=== PATIENT | male | born 1975 | race Caucasian/White ===

== ENCOUNTER 2019-11-25 06:53 | Emergency (ER) | payer MEDICARE, MEDICAID ==
[~2019-11-25] VITALS: Ht 182.9 cm; Wt 96.3 kg
[2019-11-25 06:56] VITALS: BP 121/82
--- NOTE | 2019-11-25 07:10 | NUR ---
PRESENTS WITH INCREASE IN RIGHT SHOULDER PAIN D/T INCREASED ACTIVITY. REPORTS HE WAS DX WITH RIGHT TORN ROTATOR CUFF, AND RUPTURED BICEP 2 MONTHS AGO. SURGERY RESCHEDULED D/T SOCIAL ISSUES. HAS BEEN TAKING MOTRIN "AROUND THE CLOCK" CMS INTACT. NO GROSS DEFORMITY TO SHOULDER NOTED
[2019-11-25] MEDS ORDERED: KETOROLAC 30 MG/1 ML IM ONE (07:30)
[2019-11-25] MEDS ORDERED: ACETAMINOPHEN 500 MG TABLET PO ONE (07:30)
[2019-11-25] MEDS ORDERED: ACETAMINOPHEN 500 MG TABLET ONE (07:40)
--- NOTE | 2019-11-25 07:44 | NUR ---
MEDICATED PER EMAR FOR RIGHT SHOULDER PAIN AT 7
== END 2019-11-25 08:08 | disposition home or self-care (01) ==
LOC: ED 08:00
DX: M25.511 Pain in right shoulder (principal); F32.9 Major depressive disorder, single episode, unspecified; R00.0 Tachycardia, unspecified
CPT/HCPCS: 99283

== ENCOUNTER 2020-10-21 03:08 | Inpatient (IN) | payer MEDICARE, MEDICAID ==
[~2020-10-21] VITALS: Ht 182.9 cm; Wt 120.0 kg
[2020-10-21 04:33] VITALS: BP 98/65
[2020-10-21] MEDS ORDERED: BUPR-173 PO (04:36)
[2020-10-21] MEDS ORDERED: RISP1TAB45 PO (04:36)
[2020-10-21] MEDS ORDERED: lisinopril PO (04:36)
[2020-10-21] MEDS ORDERED: ONDANSETRON 2MG/ML, 2ML IVPush PRN ×2 (06:00→16:00)
[2020-10-21] MEDS ORDERED: MELATONIN 5 MG TABLET PO PRN (06:00)
[2020-10-21] MEDS ORDERED: BISACODYL 10 MG SUPP PR PRN (06:00)
[2020-10-21] MEDS ORDERED: LABETALOL 5MG/ML, 20ML IVPush PRN (06:00)
[2020-10-21] MEDS: LACTATED RINGERS 1,000 ML IV SCH ×2 (06:18→23:56)
[2020-10-21] MEDS: PIPERACILLIN/TAZO 4.5 GM in DEXTROSE 5% 100 ML IV SCH ×4 (06:36→23:58)
[2020-10-21 07:30] VITALS: BP 105/64
[2020-10-21 08:16] LABS: BASOPHILS % (AUTO) 0 % (0-1); EOSINOPHILS % (AUTO) 2 % (1-7); LYMPHOCYTES % (AUTO) 20 % (22-44); MEAN CORPUSCULAR HGB CONC 34.4 g/dL (33.2-36.2); MEAN PLATELET VOLUME 8.2 fL (7.4-10.4); MONOCYTES % (AUTO) 10 % (2-9); NEUTROPHILS % (AUTO) 68 % (42-75); PLATELET COUNT 214 x10^3/uL (130-400); RED BLOOD COUNT 5.61 x10^6/uL (4.38-5.82); RED CELL DISTRIBUTION WIDTH 13.9 % (9.4-14.8)
[2020-10-21 08:24] LABS: ANION GAP 6 mmol/L (5-15); CALCIUM 8.9 mg/dL (8.5-10.1); CHLORIDE 109 mmol/L (98-107)
[2020-10-21] MEDS: FAMOTIDINE 20 MG/2 ML IVPush SCH ×2 (08:54→21:39)
[2020-10-21] MEDS: morphine SULFATE 10 MG/ML, 1ML IVPush PRN ×2 (08:56→21:37)
[2020-10-21] MEDS: NICOTINE 21 MG/24 HR PATCH.TD24 TD SCH (10:33)
[2020-10-21 14:57] VITALS: BP 103/77
[2020-10-21] MEDS ORDERED: CHLORHEXIDINE 15 ML UDC ONE (15:00)
[2020-10-21] MEDS ORDERED: CHLORHEXIDINE 15 ML UDC PO ONE (15:00)
[2020-10-21] MEDS ORDERED: FENTANYL PF 250 MCG/5ML ONE (15:30)
[2020-10-21] MEDS ORDERED: MIDAZOLAM 1 MG/ML, 2ML ONE (15:30)
[2020-10-21] MEDS ORDERED: OXYcodone 5 MG/5 ML ORAL.SOL UDC PO PRN (16:00)
[2020-10-21] MEDS ORDERED: MEPERIDINE/PF 25MG/0.5ML IVPush PRN (16:00)
[2020-10-21] MEDS ORDERED: morphine SULFATE 10 MG/ML, 1ML IVPush PRN (16:00)
[2020-10-21] MEDS ORDERED: hydrALAzine 20 MG/ML, 1ML IV PRN (16:00)
[2020-10-21] MEDS ORDERED: LABETALOL 5MG/ML, 20ML IV PRN (16:00)
[2020-10-21] MEDS ORDERED: CEFAZOLIN 1,000 MG ONE (16:25)
[2020-10-21] MEDS ORDERED: CEFOTETAN 2 GM ONE (16:25)
[2020-10-21] MEDS ORDERED: SUCCINYLCHOLINE 20 MG/ML, 10ML ONE (16:26)
[2020-10-21] MEDS ORDERED: NEOSTIGMINE 1 MG/ML, 10ML ONE (16:26)
[2020-10-21] MEDS ORDERED: PROPOFOL 10 MG/ML, 20ML ONE (16:26)
[2020-10-21] MEDS ORDERED: ROCURONIUM 10MG/ML,5ML ONE (16:26)
[2020-10-21] MEDS ORDERED: GLYCOPYRROLATE 0.2MG/1ML, 5ML ONE (16:26)
[2020-10-21] MEDS ORDERED: SUGAMMADEX 200 MG/2 ML IVPush ONE (16:35)
[2020-10-21] MEDS ORDERED: HYDROmorphone 2 MG/ML, 1ML ONE (16:35)
[2020-10-21] MEDS: HYDROmorphone 1 MG/ML, 1ML INJ IVPush PRN ×3 (16:50→17:37)
[2020-10-21] MEDS ORDERED: FENTANYL PF 100 MCG/2ML ONE (16:56)
[2020-10-21] MEDS: FENTANYL PF 100 MCG/2ML IV PRN ×2 (17:01→17:09)
[2020-10-21] MEDS ORDERED: CYCL10TA2 PO (19:44)
[2020-10-21] MEDS ORDERED: NAPR-996 PO (19:44)
[2020-10-21 19:54] VITALS: BP 110/75
[2020-10-21] MEDS: FLUCONAZOLE 400 MG/200 ML 200 ML IV SCH (21:30)
[2020-10-22 01:22] VITALS: BP 117/78
[2020-10-22 03:56] VITALS: BP 124/80
[2020-10-22] MEDS: morphine SULFATE 10 MG/ML, 1ML IVPush PRN ×4 (04:44→21:15)
[2020-10-22 08:00] VITALS: BP 114/76
[2020-10-22] MEDS: PIPERACILLIN/TAZO 4.5 GM in DEXTROSE 5% 100 ML IV SCH ×2 (08:17→16:19)
[2020-10-22] MEDS: FAMOTIDINE 20 MG/2 ML IVPush SCH ×2 (08:17→21:03)
[2020-10-22] MEDS: NICOTINE 21 MG/24 HR PATCH.TD24 TD SCH (08:20)
[2020-10-22 09:11] LABS: BASOPHILS % (AUTO) 1 % (0-1); EOSINOPHILS % (AUTO) 1 % (1-7); LYMPHOCYTES % (AUTO) 13 % (22-44); MEAN CORPUSCULAR HGB CONC 34.5 g/dL (33.2-36.2); MEAN PLATELET VOLUME 8.1 fL (7.4-10.4); MONOCYTES % (AUTO) 9 % (2-9); NEUTROPHILS % (AUTO) 76 % (42-75); PLATELET COUNT 192 x10^3/uL (130-400); RED CELL DISTRIBUTION WIDTH 13.8 % (9.4-14.8)
[2020-10-22 09:22] LABS: ANION GAP 9 mmol/L (5-15); CALCIUM 8.4 mg/dL (8.5-10.1); CHLORIDE 106 mmol/L (98-107)
[2020-10-22 09:55] LABS: CREATININE 0.93 mg/dL (0.7-1.3)
[2020-10-22] MEDS: LACTATED RINGERS 1,000 ML IV SCH ×2 (10:24→23:23)
[2020-10-22 14:12] VITALS: BP 116/76
[2020-10-22 19:16] VITALS: BP 120/89
[2020-10-22] MEDS: FLUCONAZOLE 400 MG/200 ML 200 ML IV SCH (21:02)
[2020-10-23] MEDS: morphine SULFATE 10 MG/ML, 1ML IVPush PRN ×5 (01:40→20:28)
[2020-10-23] MEDS: PIPERACILLIN/TAZO 4.5 GM in DEXTROSE 5% 100 ML IV SCH ×3 (01:49→18:15)
[2020-10-23 01:57] VITALS: BP 126/81
[2020-10-23 05:56] LABS: ANION GAP 9 mmol/L (5-15); CALCIUM 8.6 mg/dL (8.5-10.1); CHLORIDE 105 mmol/L (98-107)
[2020-10-23 05:57] LABS: ALANINE AMINOTRANSFERASE 18 U/L (12-78); ALBUMIN 2.5 g/dL (3.4-5.0)
[2020-10-23 05:59] LABS: ALKALINE PHOSPHATASE 73 U/L (45-117); BILIRUBIN,TOTAL 1.1 mg/dL (0.2-1.0); TOTAL PROTEIN 7.2 g/dL (6.4-8.2)
[2020-10-23 06:08] LABS: BASOPHILS % (AUTO) 0 % (0-1); EOSINOPHILS % (AUTO) 3 % (1-7); LYMPHOCYTES % (AUTO) 19 % (22-44); MEAN CORPUSCULAR HEMOGLOBIN 31.6 pg (27.5-34.5); MEAN CORPUSCULAR HGB CONC 35.3 g/dL (33.2-36.2); MEAN PLATELET VOLUME 8.6 fL (7.4-10.4); MONOCYTES % (AUTO) 11 % (2-9); NEUTROPHILS % (AUTO) 67 % (42-75); PLATELET COUNT 201 x10^3/uL (130-400); RED BLOOD COUNT 5.23 x10^6/uL (4.38-5.82); RED CELL DISTRIBUTION WIDTH 13.6 % (9.4-14.8)
[2020-10-23 08:06] VITALS: BP 125/81
[2020-10-23] MEDS: FAMOTIDINE 20 MG/2 ML IVPush SCH ×2 (08:57→20:28)
[2020-10-23] MEDS: NICOTINE 21 MG/24 HR PATCH.TD24 TD SCH (08:58)
[2020-10-23] MEDS: LACTATED RINGERS 1,000 ML IV SCH (12:51)
[2020-10-23 15:10] VITALS: BP 111/75
[2020-10-23 20:15] VITALS: BP 123/70
[2020-10-23 20:19] VITALS: BP 133/82
[2020-10-23] MEDS: FLUCONAZOLE 400 MG/200 ML 200 ML IV SCH (20:28)
[2020-10-24] MEDS: LACTATED RINGERS 1,000 ML IV SCH ×3 (01:01→23:28)
[2020-10-24 01:43] VITALS: BP 138/85
[2020-10-24] MEDS: PIPERACILLIN/TAZO 4.5 GM in DEXTROSE 5% 100 ML IV SCH ×3 (02:27→18:20)
[2020-10-24] MEDS: morphine SULFATE 10 MG/ML, 1ML IVPush PRN ×5 (02:38→19:52)
[2020-10-24 06:10] VITALS: BP 127/81
[2020-10-24] MEDS: FAMOTIDINE 20 MG/2 ML IVPush SCH ×2 (11:11→19:35)
[2020-10-24] MEDS: NICOTINE 21 MG/24 HR PATCH.TD24 TD SCH (11:11)
[2020-10-24 13:51] VITALS: BP 155/77
[2020-10-24] MEDS: FLUCONAZOLE 400 MG/200 ML 200 ML IV SCH (19:36)
[2020-10-24 19:39] VITALS: BP 131/88
[2020-10-25] MEDS: morphine SULFATE 10 MG/ML, 1ML IVPush PRN ×3 (00:52→08:47)
[2020-10-25 01:46] VITALS: BP 118/76
[2020-10-25] MEDS: PIPERACILLIN/TAZO 4.5 GM in DEXTROSE 5% 100 ML IV SCH ×3 (02:00→17:38)
[2020-10-25 05:33] LABS: ANION GAP 8 mmol/L (5-15); CALCIUM 8.9 mg/dL (8.5-10.1); CHLORIDE 104 mmol/L (98-107); CREATININE 0.69 mg/dL (0.7-1.3)
[2020-10-25 05:34] LABS: BASOPHILS % (AUTO) 1 % (0-1); EOSINOPHILS % (AUTO) 4 % (1-7); LYMPHOCYTES % (AUTO) 28 % (22-44); MEAN CORPUSCULAR HEMOGLOBIN 30.7 pg (27.5-34.5); MEAN CORPUSCULAR HGB CONC 34.8 g/dL (33.2-36.2); MONOCYTES % (AUTO) 11 % (2-9); NEUTROPHILS % (AUTO) 57 % (42-75); PLATELET COUNT 246 x10^3/uL (130-400); RED BLOOD COUNT 5.35 x10^6/uL (4.38-5.82); RED CELL DISTRIBUTION WIDTH 13.7 % (9.4-14.8)
[2020-10-25 06:35] VITALS: BP 124/79
[2020-10-25] MEDS ORDERED: POTASSIUM CHLORIDE 40 MEQ in SODIUM CHLORIDE 0.9% 500 ML IV ONE (08:30)
[2020-10-25] MEDS: FAMOTIDINE 20 MG/2 ML IVPush SCH ×2 (08:47→20:16)
[2020-10-25] MEDS: NICOTINE 21 MG/24 HR PATCH.TD24 TD SCH (08:47)
[2020-10-25] MEDS: ENOXAPARIN 40 MG/0.4 ML SQ SCH (12:06)
[2020-10-25] MEDS: OXYcodone/APAP 7.5/325MG TABLET PO PRN ×3 (12:07→22:42)
[2020-10-25 14:15] VITALS: BP 112/80
[2020-10-25] MEDS: FLUCONAZOLE 400 MG/200 ML 200 ML IV SCH (20:15)
[2020-10-25 20:21] VITALS: BP 137/95
[2020-10-26] MEDS: PIPERACILLIN/TAZO 4.5 GM in DEXTROSE 5% 100 ML IV SCH ×2 (01:59→11:21)
[2020-10-26 02:04] VITALS: BP 112/75
[2020-10-26 03:42] LABS: CLOSTRIDIUM DIFFICILE TOXIN NEGATIVE (Negative)
[2020-10-26 03:43] LABS: CLOSTRIDIUM DIFFICILE ANTIGEN POSITIVE
[2020-10-26] MEDS ORDERED: POTASSIUM CHLORIDE 20 MEQ in LACTATED RINGERS 1,000 ML IV SCH (06:00)
[2020-10-26 06:01] LABS: BASOPHILS % (AUTO) 1 % (0-1); EOSINOPHILS % (AUTO) 5 % (1-7); LYMPHOCYTES % (AUTO) 26 % (22-44); MEAN CORPUSCULAR HEMOGLOBIN 30.7 pg (27.5-34.5); MEAN CORPUSCULAR HGB CONC 34.5 g/dL (33.2-36.2); MONOCYTES % (AUTO) 11 % (2-9); NEUTROPHILS % (AUTO) 57 % (42-75); PLATELET COUNT 245 x10^3/uL (130-400); RED BLOOD COUNT 5.48 x10^6/uL (4.38-5.82); RED CELL DISTRIBUTION WIDTH 13.4 % (9.4-14.8)
[2020-10-26 06:23] LABS: ANION GAP 7 mmol/L (5-15); CALCIUM 9.1 mg/dL (8.5-10.1); CHLORIDE 105 mmol/L (98-107)
[2020-10-26 06:24] LABS: CREATININE 0.93 mg/dL (0.7-1.3)
[2020-10-26 08:00] VITALS: BP 112/78
[2020-10-26] MEDS: FAMOTIDINE 20 MG/2 ML IVPush SCH (11:22)
[2020-10-26] MEDS: ENOXAPARIN 40 MG/0.4 ML SQ SCH (11:22)
[2020-10-26] MEDS: OXYcodone/APAP 7.5/325MG TABLET PO PRN ×2 (11:22→17:59)
[2020-10-26] MEDS: NICOTINE 21 MG/24 HR PATCH.TD24 TD SCH (11:51)
[2020-10-26 14:30] VITALS: BP 107/74
[2020-10-26] MEDS ORDERED: VANCOMYCIN 50 MG/ML ORAL SUSP PO SCH (16:30)
[2020-10-26] MEDS ORDERED: POTASSIUM CHLORIDE 20 MEQ TAB.ER.PRT PO ONE (16:30)
[2020-10-26] MEDS ORDERED: FAMO20TA7 PO (16:35)
[2020-10-26] MEDS ORDERED: OXYC1TAB16 PO (16:35)
[2020-10-26] MEDS ORDERED: VANC1VIA36 PO (16:35)
[2020-10-26] MEDS ORDERED: AMOX1TAB64 PO (16:35)
[2020-10-26] MEDS ORDERED: ACID1TAB7 PO (16:35)
[2020-10-26 17:14] VITALS: BP 115/78
[2020-10-26] MEDS ORDERED: AMOXICILLIN/CLAV 875-125MG TABLET PO ONE (17:47)
[2020-10-26] MEDS ORDERED: AMOXICILLIN/CLAV 875-125MG TABLET ONE (17:52)
[2020-10-26] MEDS ORDERED: LACTOBACILLUS CHEW TABLET PO SCH (21:00)
[2020-10-26] MEDS ORDERED: FAMOTIDINE 20 MG TABLET PO SCH (21:00)
== END 2020-10-26 18:09 | disposition home or self-care (01) | DRG 329 ==
LOC: 4NE 04:22
PROVIDERS: ADMIT Internal Medicine; ATTEND Internal Medicine
PROC: 0DU907Z Supplement Duodenum with Autologous Tissue Substitute, Open Approach (ICD-10-PCS; principal; 2020-10-21 16:00)
DX: K26.1 Acute duodenal ulcer with perforation (principal); E43 Unspecified severe protein-calorie malnutrition; A04.72 Enterocolitis due to Clostridium difficile, not specified as recurrent; E87.1 Hypo-osmolality and hyponatremia; F19.20 Other psychoactive substance dependence, uncomplicated; E66.01 Morbid (severe) obesity due to excess calories; Z68.36 Body mass index [BMI] 36.0-36.9, adult; E87.6 Hypokalemia; F12.10 Cannabis abuse, uncomplicated; F17.200 Nicotine dependence, unspecified, uncomplicated; F31.9 Bipolar disorder, unspecified; I10 Essential (primary) hypertension; K21.9 Gastro-esophageal reflux disease without esophagitis; Z79.899 Other long term (current) drug therapy
CPT/HCPCS: 36415; 74240; 80048; 80053; 83735; 85025; 87070; 87075; 87102; 87205; 87324; 87338; 87635; C1729; G0378; J0690; J1170; J1450; J1650; J2250; J2543; J2704; J2710; J3010; J3370; J3480; J0330; J2270; J7040; J7120